=== PATIENT | female | born 1980 | race Caucasian/White ===

== ENCOUNTER 2019-01-04 06:02 | Day surgery (SDC) | payer BC ==
[2019-01-04] MEDS ORDERED: LIDOCAINE 2% (SDV) 5 ML INJ (07:07)
[2019-01-04] MEDS ORDERED: MIDAZOLAM 1 MG/ML 2 ML INJ (07:07)
[2019-01-04] MEDS ORDERED: PROPOFOL 20 ML (07:07)
[2019-01-04] MEDS ORDERED: CEFAZOLIN 1 GM INJ (07:07)
[2019-01-04] MEDS ORDERED: FENTAnyl 50 MCG/ML VIAL (07:07)
[2019-01-04] MEDS ORDERED: ROCURONIUM 50 MG INJ (07:07)
[2019-01-04] MEDS ORDERED: LACTATED RINGER'S 1,000 ML IV (07:30)
[2019-01-04] MEDS ORDERED: DEXAMETHASONE 4 MG/ML 5 ML INJ (07:39)
[2019-01-04] MEDS ORDERED: FAMOTIDINE 20 MG INJ (07:39)
[2019-01-04] MEDS ORDERED: ONDANSETRON 4 MG INJ (07:39)
[2019-01-04] MEDS ORDERED: METOCLOPRAMIDE 10 MG INJ (07:39)
[2019-01-04 07:48] LABS: ADD MAN DIFF? NO
[2019-01-04 07:56] LABS: BASOPHIL # 0.1 10^3/ul (0.0-0.1); BASOPHILS % 0.8 % (0.0-2.0); EOSINOPHILS # 0.1 10^3/ul (0.0-0.5); EOSINOPHILS % 1.7 % (0.0-7.0); HEMATOCRIT 36.7 % (37.0-47.0); HEMOGLOBIN 11.7 g/dl (12.0-16.0); LYMPHOCYTES % 35.4 % (15.0-51.0); MEAN CORPUSCULAR HEMOGLOBIN 26.4 pg (29.0-33.0); MEAN CORPUSCULAR HGB CONC 31.9 g/dl (32.0-37.0); MEAN CORPUSCULAR VOLUME 82.8 fl (82.0-101.0); MEAN PLATELET VOLUME 9.3 fl (7.4-10.4); MONOCYTE # 0.5 10^3/ul (0.3-0.9); MONOCYTES % 5.4 % (0.0-11.0); NEUTROPHIL # 4.7 10^3/ul (1.6-7.5); NEUTROPHILS % 56.3 % (39.0-77.0); PLATELET COUNT 321 10^3/UL (140-415); RED BLOOD COUNT 4.43 10^6/ul (4.20-5.40); RED CELL DISTRIBUTION WIDTH 13.9 % (11.5-14.5)
[2019-01-04 07:56] LABS: WHITE BLOOD COUNT 8.3 10^3/ul (4.8-10.8)
[2019-01-04] MEDS ORDERED: FENTAnyl 50 MCG/ML VIAL IV ×3 (08:00)
[2019-01-04] MEDS ORDERED: ONDANSETRON 4 MG INJ IV (08:00)
[2019-01-04] MEDS ORDERED: MEPERIDINE 25 MG INJ IV (08:00)
[2019-01-04] MEDS ORDERED: OXYCODONE/ACETAMINOPHEN (5/325) TAB PO ×2 (08:00)
[2019-01-04] MEDS ORDERED: LABETALOL HCL 20MG INJ IV (08:00)
[2019-01-04] MEDS ORDERED: NEOSTIGMINE 3 MG/3 ML SYRINGE (08:04)
[2019-01-04] MEDS ORDERED: GLYCOPYRROLATE 0.4 MG INJ (08:04)
[2019-01-04] MEDS ORDERED: KETOROLAC 30 MG INJ (08:05)
== END 2019-01-04 09:50 | disposition home or self-care (01) ==
LOC: SDS 06:02
DX: Z30.2 Encounter for sterilization (principal); E03.9 Hypothyroidism, unspecified
CPT/HCPCS: 58670; 84702; 85025